=== PATIENT | female | born 1940 | race Caucasian/White ===

== ENCOUNTER 2018-04-01 15:04 | Emergency (ER) | payer MEDICARE ==
[~2018-04-01] VITALS: Ht 144.8 cm; Wt 40.0 kg
[2018-04-01] MEDS ORDERED: METHI5 PO (15:07)
[2018-04-01] MEDS ORDERED: ESOM20CA31 PO (15:07)
[2018-04-01] MEDS ORDERED: CARB1CAP (15:07)
[2018-04-01 16:36] VITALS: BP 125/81
== END 2018-04-01 17:16 | disposition home or self-care (01) ==
LOC: EMS 15:06
DX: S01.512A Laceration without foreign body of oral cavity, initial encounter (principal); Z79.899 Other long term (current) drug therapy; E07.9 Disorder of thyroid, unspecified; G20 Parkinson's disease; X58.XXXA Exposure to other specified factors, initial encounter; Y93.89 Activity, other specified; Y92.89 Other specified places as the place of occurrence of the external cause; Y99.8 Other external cause status
CPT/HCPCS: 99281